=== PATIENT | female | born 1980 | race Caucasian/White ===

== ENCOUNTER 2023-02-18 11:47 | Emergency (ER) | payer OTHER ==
[~2023-02-18] VITALS: Ht 170.2 cm; Wt 77.1 kg
[~2023-02-18 11:47] MED LIST: ANTIVERT25 M1 PO
== END 2023-02-18 15:24 | disposition home or self-care (01) ==
LOC: ER 11:47
DX: B34.9 Viral infection, unspecified (principal); D68.09 Other von Willebrand disease; Z88.0 Allergy status to penicillin; Z88.2 Allergy status to sulfonamides; Z88.6 Allergy status to analgesic agent; Z20.822 Contact with and (suspected) exposure to COVID-19